=== PATIENT | male | born 1995 | race African-American/Black ===

== ENCOUNTER 2021-05-26 13:22 | Emergency (ER) | payer SELFPAY ==
[~2021-05-26] VITALS: Ht 170.2 cm; Wt 66.0 kg
[2021-05-26] MEDS ORDERED: ONDANSETRON HCL 4MG/2ML INJ IV STA (14:12)
[2021-05-26] MEDS ORDERED: SODIUM CHLORIDE 0.9% 1,000 ML IV ONE (14:15)
[2021-05-26 15:12] LABS: BASOPHILS % 0.3 % (0.0-2.0); HEMATOCRIT. 46.5 % (42.0-52.0); HEMOGLOBIN. 16.1 g/dL (14.0-18.0); LYMPHOCYTES % 19.5 % (20.0-50.0); MEAN CORPUSCULAR HEMOGLOBIN 30.7 pg (28.0-32.0); MEAN CORPUSCULAR VOLUME 88.4 fL (80.0-94.0); MEAN PLATELET VOLUME 7.9 fl (7.4-10.4); MONOCYTES % 13.4 % (2.0-8.0); NEUTROPHILS % 66.8 % (40.0-76.0); PLATELET 379 x1000/uL (130-400); RED BLOOD CELL COUNT 5.25 mill/uL (4.7-6.1); RED CELL DISTRIBUTION WIDTH 14.7 % (11.6-14.6)
[2021-05-26 15:19] LABS: CHLORIDE 93 mEq/L (98-107)
[2021-05-26 15:38] LABS: PROTHROMBIN TIME 11.2 sec (9.6-11.0)
[2021-05-26 15:59] LABS: HCG SCREEN NEGATIVE
[2021-05-26] MEDS ORDERED: MORPHINE SULFATE 4 MG/ML CPJ (NOT FOR IM USE) IV ONE (16:30)
[2021-05-26] MEDS ORDERED: DEXT 5%/0.9% NACL 1,000 ML IV ONE ×2 (17:00→20:30)
[2021-05-26 19:50] LABS: CLARITY URINE CLOUDY (CLEAR); COLOR URINE YELLOW (YELLOW); KETONES URINE NEGATIVE (NEGATIVE); LEUKOCYTE ESTERASE URINE NEGATIVE (NEGATIVE); NITRITE URINE NEGATIVE (NEGATIVE); OCCULT BLOOD URINE NEGATIVE (NEGATIVE); PROTEIN URINE 1+ (NEGATIVE); UROBILINOGEN URINE 0.2 E.U./dL (0.2-1.0)
[2021-05-26] MEDS ORDERED: METOCLOPRAMIDE HCL 10MG/2ML VIAL IV ONE (20:15)
[2021-05-26] MEDS ORDERED: ONDANSETRON 4MG ODT PO ONE (20:15)
[2021-05-26] MEDS ORDERED: ACETAMINOPHEN 325MG TABLET PO ONE (20:15)
[2021-05-26] MEDS ORDERED: ONDA4TAB5 MT (21:16)
[2021-05-26 21:30] VITALS: BP 136/85
== END 2021-05-26 21:44 | disposition home or self-care (01) ==
LOC: ER 13:22
DX: R11.2 Nausea with vomiting, unspecified (principal); E87.2 Acidosis
CPT/HCPCS: 36415; 80048; 80053; 81003; 83605; 83690; 84703; 85025; 85610; 93005; 96361; 96374; 96375; 99285; J2270; J2405; J2765; J7030; J7042